=== PATIENT | male | born 2000 | race Caucasian/White ===

== ENCOUNTER 2024-08-24 22:27 | Emergency (ER) | payer BC ==
[~2024-08-24] VITALS: Ht 177.8 cm; Wt 65.2 kg
[2024-08-24 22:29] VITALS: BP 131/97; TEMP 98.2
[2024-08-24] MEDS: ipratropium/albuterol 3ml nebule NEB STA (22:56)
[2024-08-24 22:57] VITALS: PULSE 105; RESP 16; O2SAT 96
[2024-08-24 23:03] VITALS: PULSE 112; RESP 18; O2SAT 97
--- NOTE | 2024-08-25 00:24 | Physician Documentation ---
History of Present Illness ~ Chief Complaint: Asthma Stated Complaint: ASTHMA Time Seen by MD: 00:20 Primary Medical Doctor: [facility] HPI Patient presents to the emergency room for evaluation of shortness of breath. Patient has long history of asthma and just felt his home inhaler was not working. Denies any fevers. No other complaints. Patient has taken steroids before but it has been many years. States that every once in awhile he will have an asthma flare the lasts a proximally two weeks and resolved spontaneously. Medication Reconciliation Allergies: Coded Allergies: No Known Allergies (Unverified , 08/24/24) Review of Systems ROS All review of systems negative except as per HPI Physical Exam Vital Signs: Temperature: 98.2, Source: Temporal, Heart Rate: 112, Respiratory Rate: 18, BP: 131/97, Pulse Oximetry: 97, Weight: 65.200 Oxygen Flow Rate: 0 Physical Exam General: Patient is awake, alert, oriented x4 in no acute distress and well appearing.~ Head: Normocephalic and atraumatic. Eyes: Conjunctival normal. EOMI. PERRL. ENT: Mucous membranes moist. Neck: Supple, trachea is midline. Chest: Mild bilateral wheezing present. There is no accessory muscle use or retractions. Cardiac: RRR without murmurs, gallops, or rubs. Abd: Soft, nondistended, nontender, with normoactive bowel sounds. No guarding, rebound, or rigidity. Extremities: Normal strength. Normal range of motion. No deformities or edema. No calf tenderness to palpation Progress Results/Orders Results/Orders Completed Orders - YUVAL CANCINO MD Ipratropium/Albuterol Nebule (Ipratrop/A (08/24/24 22:34) Medications Received in ER Medications (Trade) Dose Ordered Sig/Mookie Route PRN Reason Start Time Stop Time Status Last Admin Dose Admin (ipratrop/ albuterol 0.5-3(2.5) MG/3ml nebule) 3 ml ONCE STAT NEB 08/24/24 22:34 08/24/24 22:36 DC 08/24/24 22:56 3 ML Vital Signs 08/24/24 08/24/24 08/24/24 22:29 22:57 23:03 Temp 98.2 Pulse 112 105 112 Resp 18 16 18 B/P (MAP) 131/97 Pulse Ox 96 96 97 O2 Delivery Room Air* Room Air* O2 Flow Rate 0 0 0 FiO2 21 21 Medical Decision Making Findings Patient presented to the emergency room with shortness of breath as per HPI. Differentials include but are not limited to asthma exacerbation, pneumonia, pneumothorax, CHF. Patient responded well to breathing treatment and given his course in the emergency room and he had not feel emergent labs or imaging is necessary. ER precautions discussed. He is declining steroids Departure Disposition: HOME / SELF CARE / HOMELESS Impression: Primary Impression: Asthma Condition: Improved Discharge Instructions: Asthma Attack Prevention, Adult Referrals: NO PRIMARY CARE PROVIDER (PCP) Education Educated: Patient Educated regarding: diagnosis, treatment, need for follow up Signature Scribe Signature: No scribe Attestation: The note accurately reflects work and decisions made by me.Yuval Cancino MD 08/25/24 00:27 YUVAL CANCINO MD August 25, 2024 00:24
[2024-08-25 00:29] VITALS: PULSE 97; O2SAT 96
== END 2024-08-25 00:30 | disposition home or self-care (01) ==
LOC: ER 22:28
DX: J45.909 Unspecified asthma, uncomplicated (principal)
CPT/HCPCS: 94640; 99283